=== PATIENT | female | born 1965 | race Caucasian/White ===

== ENCOUNTER 2016-12-14 12:11 | Emergency (ER) | payer OTHER ==
[~2016-12-14] VITALS: Ht 160 cm; Wt 54.4 kg
[~2016-12-14 12:11] MED LIST: ALPRAZOLAM 0.50.5 M1 PO; ASPIRIN EC81 M1 PO; ATIVAN0.5 MG PO; CALCIUM 500 +1 EAC5 PO; CLEOCIN HCL150 MG PO; CLEOCIN HCL300 MG PO; CYMBALTA60 MG PO; DEEP SEA NASAL44 M1; DEPAKOTE 250MG250 M1 PO; DUONEB 2.5-0.5 M3 ML INH; FISH OIL 1,0001 EAC5 PO; IBUPROFEN 600600 M1 PO; IBUPROFEN 800800 MG PO; LAMICTAL100 MG PO; LEVAQUIN 250 M250 MG PO; LYRICA 75 MG CA75 MG PO; MEDROLDOSEPACK PO; MELATONIN3 MG PO; MORPHINE SULFAT15 M3 PO; MS CONTIN100 MG PO; MULTIVITAMINS PO; NORCO 5-325 TA1 EACH PO; PHENERGAN 25 MG25 M1 PO; POTASSIUM20 PO; PRENATAL VITAMIN PO; RESTORIL30 MG PO; SENOKOT-S1 TA1 PO; SEROQUEL 50 MG50 MG PO; VITAMIN B-1100 M1 PO; VITAMIN B-1100 M2 PO; VOL-NATE TABLE1 EACH PO; WELLBUTRIN SR150 MG PO
[2016-12-14 12:12] VITALS: BP 104/78
[2016-12-14] MEDS ORDERED: CLONAZEPAM1 GM MC (12:18)
[2016-12-14] MEDS ORDERED: MEDROL DOSPAK21 TAB PO (13:08)
== END 2016-12-14 13:22 | disposition home or self-care (01) ==
LOC: ER 12:11
DX: L25.0 Unspecified contact dermatitis due to cosmetics (principal); K21.9 Gastro-esophageal reflux disease without esophagitis; M79.7 Fibromyalgia; F32.9 Major depressive disorder, single episode, unspecified; G43.809 Other migraine, not intractable, without status migrainosus; F41.9 Anxiety disorder, unspecified; F12.10 Cannabis abuse, uncomplicated; Z90.89 Acquired absence of other organs; Z98.890 Other specified postprocedural states; Z88.2 Allergy status to sulfonamides; Z88.1 Allergy status to other antibiotic agents; Z88.8 Allergy status to other drugs, medicaments and biological substances

== ENCOUNTER 2016-12-24 16:59 | Emergency (ER) | payer OTHER ==
[~2016-12-24] VITALS: Ht 160 cm; Wt 54.4 kg
[~2016-12-24 16:59] MED LIST changes: +CLONAZEPAM1 GM MC; +MEDROL DOSPAK21 TAB PO
[2016-12-24 17:02] VITALS: BP 105/74
[2016-12-24] MEDS ORDERED: METROCREAM45 GM TP (17:33)
[2016-12-24] MEDS ORDERED: MEDROLDOSEPACK PO (17:33)
[2016-12-24] MEDS ORDERED: EPIPEN0.3 MG/0.1 IJ (17:40)
== END 2016-12-24 17:46 | disposition home or self-care (01) ==
LOC: ER 16:59
DX: L71.0 Perioral dermatitis (principal); K21.9 Gastro-esophageal reflux disease without esophagitis; M79.7 Fibromyalgia; F32.9 Major depressive disorder, single episode, unspecified; G43.909 Migraine, unspecified, not intractable, without status migrainosus; F41.9 Anxiety disorder, unspecified; Z88.1 Allergy status to other antibiotic agents; Z88.2 Allergy status to sulfonamides; Z88.8 Allergy status to other drugs, medicaments and biological substances

== ENCOUNTER 2017-12-06 10:21 | Emergency (ER) | payer OTHER ==
[~2017-12-06] VITALS: Ht 157.5 cm; Wt 68.0 kg
--- NOTE | ~2017-12-06 | EKG ---
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
[~2017-12-06 10:21] MED LIST changes: +EPIPEN0.3 MG/0.1 IJ; +LYRICA 50 MG50 MG PO; +METROCREAM45 GM TP
[2017-12-06 10:59] LABS: ABSOLUTE NEUTROPHILS 5.2 thou/uL (1.4-8.2); BASOPHILS 0.5 % (0.0-2.0); EOSINOPHILS 1.6 % (0.0-3.0); HEMATOCRIT 34.2 % (37.0-47.0); HEMOGLOBIN 11.8 gm/dL (12.0-15.0); LYMPHOCYTES 23.2 % (24.0-44.0); MCH 30.1 pg (26.0-34.0); MCHC 34.5 g/dL (28.0-37.0); MCV 87.4 fL (80.0-100.0); PLATELET COUNT 281 thou/uL (150-400); POLYS 67.7 % (36.0-66.0); RBC 3.91 mil/uL (4.20-5.00); RDW 14.4 % (10.5-14.5); WBC 7.7 thou/uL (4.0-11.0)
[2017-12-06 11:08] LABS: ANION GAP 10 mmol/L (7-16); BUN 13 mg/dL (7-18); CALCIUM 8.7 mg/dL (8.5-10.1); CHLORIDE 103 mmol/L (98-107); CO2 26 mmol/L (21-32); CREATININE 0.8 mg/dL (0.6-1.0); GLUCOSE 111 mg/dL (74-106); POTASSIUM 4.1 mmol/L (3.5-5.1); SODIUM 139 mmol/L (136-145)
[2017-12-06 11:16] LABS: TROPONIN-I < 0.04 ng/mL (<0.06)
[2017-12-06] MEDS ORDERED: VISTARIL 25 MG25 M1 PO (12:33)
[2017-12-06 12:57] VITALS: BP 122/68
[2018-03-30] MEDS ORDERED: MOBIC15 MG PO (12:18)
[2018-03-30] MEDS ORDERED: CLINDAMYCIN HC150 MG PO (12:18)
== END 2017-12-06 12:59 | disposition home or self-care (01) ==
LOC: ER 10:21
PROVIDERS: Nurse Practitioner
DX: F41.9 Anxiety disorder, unspecified (principal); R07.89 Other chest pain; K21.9 Gastro-esophageal reflux disease without esophagitis; M79.7 Fibromyalgia; F32.9 Major depressive disorder, single episode, unspecified; Z98.890 Other specified postprocedural states; Z88.2 Allergy status to sulfonamides; Z88.0 Allergy status to penicillin; Z88.8 Allergy status to other drugs, medicaments and biological substances

== ENCOUNTER 2017-12-16 11:49 | Emergency (ER) | payer OTHER ==
[~2017-12-16] VITALS: Ht 160 cm; Wt 59.0 kg
[~2017-12-16 11:49] MED LIST changes: +VISTARIL 25 MG25 M1 PO
[2017-12-16] MEDS ORDERED: OXYCODONE HCL 55 MG PO (12:49)
[2017-12-16] MEDS ORDERED: CLEOCIN HCL300 MG PO (12:51)
[2017-12-16 13:35] VITALS: BP 107/72
[2018-03-30] MEDS ORDERED: CLINDAMYCIN HC150 MG PO (12:18)
[2018-03-30] MEDS ORDERED: MOBIC15 MG PO (12:18)
== END 2017-12-16 12:55 | disposition home or self-care (01) ==
LOC: ER 11:49
DX: K02.9 Dental caries, unspecified (principal); R22.0 Localized swelling, mass and lump, head; K21.9 Gastro-esophageal reflux disease without esophagitis; M79.7 Fibromyalgia; F32.9 Major depressive disorder, single episode, unspecified; G43.909 Migraine, unspecified, not intractable, without status migrainosus; F41.9 Anxiety disorder, unspecified; Z90.89 Acquired absence of other organs; Z88.2 Allergy status to sulfonamides; Z88.1 Allergy status to other antibiotic agents; Z88.8 Allergy status to other drugs, medicaments and biological substances

== ENCOUNTER 2018-01-07 11:09 | Emergency (ER) | payer OTHER ==
[~2018-01-07] VITALS: Ht 152.4 cm; Wt 59.0 kg
[~2018-01-07 11:09] MED LIST changes: +OXYCODONE HCL 55 MG PO
[2018-01-07 11:12] VITALS: BP 120/91
[2018-01-07] MEDS ORDERED: DICLOFENAC SODI25 MG PO (11:25)
[2018-01-07] MEDS ORDERED: IBUPROFEN 800800 M1 PO (11:44)
[2018-01-07] MEDS ORDERED: CLEOCIN HCL150 MG PO (11:44)
[2018-03-30] MEDS ORDERED: CLINDAMYCIN HC150 MG PO (12:18)
[2018-03-30] MEDS ORDERED: MOBIC15 MG PO (12:18)
== END 2018-01-07 12:10 | disposition home or self-care (01) ==
LOC: ER 11:09
DX: K04.7 Periapical abscess without sinus (principal); K21.9 Gastro-esophageal reflux disease without esophagitis; F32.9 Major depressive disorder, single episode, unspecified; M79.7 Fibromyalgia; G43.909 Migraine, unspecified, not intractable, without status migrainosus; F41.9 Anxiety disorder, unspecified; Z88.2 Allergy status to sulfonamides; Z88.1 Allergy status to other antibiotic agents; Z88.8 Allergy status to other drugs, medicaments and biological substances; Z87.891 Personal history of nicotine dependence

== ENCOUNTER 2020-05-22 21:47 | Emergency (ER) | payer OTHER ==
[~2020-05-22] VITALS: Ht 160 cm; Wt 61.2 kg
[~2020-05-22 21:47] MED LIST changes: +CLINDAMYCIN HC150 MG PO; +DICLOFENAC SODI25 MG PO; +IBUPROFEN 800800 M1 PO; +MOBIC15 MG PO
[2020-05-22] MEDS ORDERED: WELLBUTRIN 75 M75 M1 PO (22:19)
[2020-05-22 23:39] LABS: ABSOLUTE NEUTROPHILS 12.4 thou/uL (1.4-8.2); BASOPHILS 0.8 % (0.0-2.0); HEMATOCRIT 44.6 % (37.0-47.0); HEMOGLOBIN 15.2 gm/dL (12.0-15.0); LYMPHOCYTES 15.1 % (24.0-44.0); MCH 29.4 pg (26.0-34.0); MCV 86.5 fL (80.0-100.0); MONOCYTES 5.2 % (1.0-8.0); PLATELET COUNT 462 thou/uL (150-400); POLYS 78.9 % (36.0-66.0); RBC 5.15 mil/uL (4.20-5.00); RDW 15.4 % (10.5-14.5); WBC 15.7 thou/uL (4.0-11.0)
[2020-05-22 23:57] LABS: URINE BILIRUBIN 1+ (Negative); URINE BLOOD NEGATIVE (Negative); URINE CLARITY CLEAR; URINE COLOR YELLOW; URINE GLUCOSE-RANDOM* NEGATIVE (Negative); URINE KETONES 3+ (Negative); URINE LEUKOCYTES-REFLEX NEGATIVE (Negative); URINE NITRITE-REFLEX NEGATIVE (Negative); URINE PROTEIN (DIPSTICK) 2+ (Negative); URINE SPECIFIC GRAVITY >= 1.030 (1.005-1.035); URINE UROBILINOGEN 0.2 E.U./dl (0.2-1.0)
[2020-05-23 00:13] LABS: AMP/METHAMP Negative (Negative); BARBITURATES Negative (Negative); BENZODIAZEPINES Negative (Negative); COCAINE Negative (Negative); METHADONE Negative (Negative); OPIATES Negative (Negative); PCP Negative (Negative)
[2020-05-23 00:16] LABS: ICTOTEST (BILI CONFIRMATORY) Positive (Negative)
[2020-05-23 00:17] LABS: CASTS None Seen /LPF (None Seen); MUCUS 4-6 Moderate strn/LPF (None Seen); SQUAMOUS 4-10 Moderate /LPF (0-3); URINE RBC None Seen /HPF (0-2); URINE WBC-REFLEX None Seen /HPF (0-5)
[2020-05-23 00:18] LABS: CRYSTALS None Seen /LPF (None Seen)
[2020-05-23 00:19] LABS: ANION GAP 22 mmol/L (7-16); BUN 21 mg/dL (7-18); CALCIUM 9.5 mg/dL (8.5-10.1); CHLORIDE 102 mmol/L (98-107); CO2 17 mmol/L (21-32); GLUCOSE 135 mg/dL (74-106); POTASSIUM 3.3 mmol/L (3.5-5.1); SODIUM 141 mmol/L (136-145)
[2020-05-23 00:26] LABS: ALBUMIN 4.2 g/dL (3.4-5.0); DIRECT BILIRUBIN < 0.1 mg/dL (<0.1-0.2); LIPASE 81 U/L (73-393); SGOT 22 U/L (15-37); SGPT 24 U/L (30-65); TOTAL BILIRUBIN 0.6 mg/dL (0.2-1.0)
[2020-05-23] MEDS ORDERED: ZOFRAN ODT4 MG PO (05:25)
[2020-05-23 05:43] VITALS: BP 130/79
== END 2020-05-23 05:44 | disposition home or self-care (01) ==
LOC: ER 21:47
PROVIDERS: Emergency Medicine
DX: E87.2 Acidosis (principal); E86.0 Dehydration; R42 Dizziness and giddiness; M79.7 Fibromyalgia; K21.9 Gastro-esophageal reflux disease without esophagitis; F32.9 Major depressive disorder, single episode, unspecified; G43.909 Migraine, unspecified, not intractable, without status migrainosus; F41.9 Anxiety disorder, unspecified; Z98.890 Other specified postprocedural states; Z90.89 Acquired absence of other organs; Z79.899 Other long term (current) drug therapy; Z88.2 Allergy status to sulfonamides; Z88.1 Allergy status to other antibiotic agents; Z88.8 Allergy status to other drugs, medicaments and biological substances; Z87.891 Personal history of nicotine dependence